=== PATIENT | female | born 1970 | race Caucasian/White ===

== ENCOUNTER → 2016-10-13 | Outpatient (CLI) | payer OTHER ==
[~2016-10-13] MED LIST: AMT24 PO; BUPRTAB51 PO; BUSP15TA70 PO; CALC600T14 PO; CLIN150C PO; CLON0.5T3 PO; DTRSR4 PO; ESOM40GR PO; FLUO40CA8 PO; GABA600T PO; METH500T PO; QUET1TAB34 PO; VITAMIN C PO
--- NOTE | 2016-10-13 14:31 | MAMMOGRAPHY REPORT ---
UNILATERAL LEFT DIGITAL DIAGNOSTIC MAMMOGRAM WITH CAD: 10/13/2016 CLINICAL HISTORY: 45-year-old woman presents for follow-up of probably benign calcifications in the central left breast. Patient has a history of saline implants. TECHNIQUE: Left CC and MLO views of the breast with and without implant displacement views, and spot magnification left CC and ML views were obtained. Current study was also evaluated with a Computer Aided Detection (CAD) system. COMPARISON: Comparison is made to exams dated: 04/11/2016 mammogram, 04/04/2016 mammogram, 02/04/2015 ma mmogram, and 01/27/2014 mammogram - [facility]. BREAST COMPOSITION: There are scattered areas of fibroglandular density in the left breast. FINDINGS: There is a calcification in the central left breast that has coarsened compared to the yen or spot magnification views, confirming benignity. This now has the appearance of a benign rim calc ification or eggshell calcification. No new suspicious mass, architectural distortion or cluster of microcalcifications is seen throughout the left breast. A subpectoral saline implant is intact. IMPRESSION: ACR BI-RADS CATEGORY 2: BENIGN The calcification in the central left breast has coarsened, confirming benignity. There is no mammo graphic evidence of malignancy. Return to annual mammogram screening schedule is recommended, which is due in March 2017. The patient has been verbally notified of the results. Approximately 10% of breast cancers are not detected with mammography. A negative mammographic repor t should not delay biopsy if a clinically suggestive mass is present. Mima Perez M.D. ay/:10/13/2016 10:22:05 Optical Effects Layout Person: Audra HANNON(Frederic)(Esdras), [facility] letter sent: Normal 1/2 BI-RADS Code: ACR BI-RADS Category 2: Benign
== END | disposition home or self-care (01) ==
LOC: C.MAMM 09:58
PROVIDERS: ATTEND Family Medicine
DX: R92.1 Mammographic calcification found on diagnostic imaging of breast (principal); Z98.82 Breast implant status

== ENCOUNTER → 2017-04-11 | Outpatient (CLI) | payer OTHER ==
--- NOTE | 2017-04-11 14:19 | MAMMOGRAPHY REPORT ---
BILATERAL DIGITAL SCREENING MAMMOGRAM WITH CAD: 04/11/2017 CLINICAL HISTORY: Routine screening. Patient has no complaints. TECHNIQUE: Current study was also evaluated with a Computer Aided Detection (CAD) system. Bilateral CC and MLO views including implant displaced views were obtained. COMPARISON: Comparison is made to exams dated: 10/13/2016 mammogram, 04/04/2016 mammogram, 02/04/2015 massiel mogram, 01/27/2014 mammogram, 01/21/2013 mammogram, and 12/29/2011 mammogram - [facility] BREAST COMPOSITION: There are scattered areas of fibroglandular density in both breasts. FINDINGS: No suspicious masses, calcifications, or areas of architectural distortion are noted in ei ther breast. There has been no significant interval change compared to prior exams. Bilateral subpec ross saline implants are stable in appearance. IMPRESSION: ACR BI-RADS CATEGORY 2: BENIGN There is no mammographic evidence of malignancy. A 1 year screening mammogram is recommended. The pa tient will receive written notification of the results. Approximately 10% of breast cancers are not detected with mammography. A negative mammographic report should not delay biopsy if a clinically suggestive mass is present. Dorina Dial M.D. /:04/11/2017 11:59:34 Electronics Test Engineer: Audra CHRISTIE)(M), [facility] letter sent: Normal 1/2 BI-RADS Code: ACR BI-RADS Category 2: Benign
== END | disposition home or self-care (01) ==
LOC: C.MAMM 10:23
PROVIDERS: ATTEND Obstetrics & Gynecology
DX: Z12.31 Encounter for screening mammogram for malignant neoplasm of breast (principal); Z98.82 Breast implant status

== ENCOUNTER → 2017-08-08 | Outpatient (CLI) | payer OTHER | END | disposition home or self-care (01) | LOC: C.PAPS 14:18 | PROVIDERS: ATTEND Obstetrics & Gynecology | DX: Z12.4 Encounter for screening for malignant neoplasm of cervix (principal) ==

== ENCOUNTER → 2017-10-21 | Outpatient (CLI) | payer OTHER ==
[2017-10-21 13:07] LABS: BASO % 0.5 %; BASO ABS # 0.02 K/uL (0-0.2); EOS % 0.8 %; EOS ABS # 0.03 K/uL (0-0.5); HEMATOCRIT 36.7 % (37-47); HEMOGLOBIN 12.2 g/dL (12.0-16.0); IG# 0.01 K/uL (0.00-0.02); LYMPH % 31.6 %; MEAN CORPUSCULAR HEMOGLOBIN 30.6 pg (25-34); MEAN CORPUSCULAR HGB CONC 33.2 g/dl (32-36); MEAN PLATELET VOLUME 9.6 fL (7.4-10.4); MONO % 7.9 %; NEUT % 58.9 %; NEUT ABS # 2.24 K/uL (1.4-6.5); PLATELET COUNT 216 K/uL (130-400); RED CELL DISTRIBUTION WIDTH CV 13.1 % (11.5-14.5)
[2017-10-21 13:37] LABS: ALBUMIN 4.4 gm/dl (3.4-5.0); BLOOD UREA NITROGEN 24 mg/dl (7-18); CARBON DIOXIDE 25 mmol/L (21-32); CHOLESTEROL 120 mg/dl (0-200); CREATININE 0.63 mg/dl (0.60-1.20); GLUCOSE 68 mg/dl (70-99); LDL CHOLESTEROL CALCULATED 44 mg/dl; URIC ACID 4.8 mg/dl (2.6-7.2)
[2017-10-21 13:38] LABS: SODIUM 141 mmol/L (136-145)
[2017-10-21 13:47] LABS: ALKALINE PHOSPHATASE 98 U/L (45-117); ALT/SGPT 29 U/L (12-78); AST/SGOT 20 U/L (15-37); TOTAL PROTEIN 7.5 gm/dl (6.4-8.2); TRANSFERRIN 253 mg/dl (200-360)
[2017-10-22 07:38] LABS: HEMOGLOBIN A1C 5.6 % (4.5-5.6)
== END | disposition home or self-care (01) ==
LOC: C.LAB 12:13
PROVIDERS: ATTEND Family Medicine
DX: R73.09 Other abnormal glucose (principal); E55.9 Vitamin D deficiency, unspecified; D51.9 Vitamin B12 deficiency anemia, unspecified; E78.9 Disorder of lipoprotein metabolism, unspecified; R53.83 Other fatigue

== ENCOUNTER → 2017-10-27 | Outpatient (CLI) | payer OTHER ==
[2017-10-27 12:33] LABS: BLOOD UREA NITROGEN 23 mg/dl (7-18); CARBON DIOXIDE 27 mmol/L (21-32); CREATININE 0.83 mg/dl (0.60-1.20); GLUCOSE 91 mg/dl (70-99); POTASSIUM 4.1 mmol/L (3.5-5.1); SODIUM 139 mmol/L (136-145)
== END | disposition home or self-care (01) ==
LOC: C.LAB 11:54
PROVIDERS: ATTEND Dermatology
DX: L70.9 Acne, unspecified (principal)

== ENCOUNTER 2023-02-23 09:33 | Inpatient (IN) ==
--- NOTE | 2023-02-06 15:33 | PAT Medication Instructions ---
Medication Instructions Date of Service February 06, 2023 Home Medications Medication Instructions Recorded bupropion HCl 300 mg 24 hr tablet, 300 mg PO DAILY #90 tabs 08/29/22 extended release levothyroxine 100 mcg tablet 100 mcg PO DAILY #90 tabs 08/29/22 (Synthroid) famotidine 40 mg tablet 40 mg PO DAILY #90 tabs 09/05/22 quetiapine 100 mg tablet 100 mg PO HS #90 tabs 09/05/22 tolterodine 4 mg capsule,extended 4 mg PO DAILY #90 caps 09/05/22 release 24 hr medroxyprogesterone 150 mg/mL 150 mg IM Q3MO #1 mL 09/14/22 intramuscular suspension clindamycin HCl 150 mg capsule 150 mg PO BID #180 caps 09/21/22 clonazepam 0.5 mg tablet 0.5 mg PO TID #270 tabs 09/21/22 sulindac 200 mg tablet 200 mg PO DAILY #30 tabs 11/17/22 atenolol 50 mg tablet 50 mg PO DAILY #90 tabs 01/05/23 dextroamphetamine-amphetamine 20 20 mg PO BID #60 tabs 01/26/23 mg tablet (Adderall) dextroamphetamine-amphetamine ER 30 mg PO DAILY #30 caps 01/26/23 30 mg 24hr capsule,extend release hydrocodone 10 mg-acetaminophen 1 tab PO Q4H PRN pain #180 tabs 01/26/23 325 mg tablet Medication List: linaclotide 290 mcg capsule (Linzess) 290 mcg PO QAM mometasone 50 mcg/actuation nasal spray 2 spray intranasal DAILY bupropion HCl 300 mg 24 hr tablet, extended release 300 mg PO DAILY levothyroxine 100 mcg tablet (Synthroid) 100 mcg PO DAILY famotidine 40 mg tablet 40 mg PO DAILY quetiapine 100 mg tablet 100 mg PO HS tolterodine 4 mg capsule,extended release 24 hr 4 mg PO DAILY duloxetine 60 mg capsule,delayed release 60 mg PO QAM medroxyprogesterone 150 mg/mL intramuscular suspension 150 mg IM Q3MO vilazodone 40 mg tablet 40 mg PO DAILY clindamycin HCl 150 mg capsule 150 mg PO BID clonazepam 0.5 mg tablet 0.5 mg PO TID budesonide-formoterol HFA 160 mcg-4.5 mcg/actuation aerosol inhaler (Symbicort) 2 puff inhalation Q12H fexofenadine 60 mg tablet 180 mg PO QAM isotretinoin 20 mg capsule 20 mg PO BID sulindac 200 mg tablet 200 mg PO DAILY atenolol 50 mg tablet 50 mg PO DAILY dextroamphetamine-amphetamine 20 mg tablet (Adderall) 20 mg PO BID dextroamphetamine-amphetamine ER 30 mg 24hr capsule,extend release 30 mg PO DAILY hydrocodone 10 mg-acetaminophen 325 mg tablet 1 tab PO Q4H PRN pain cyanocobalamin (vitamin B-12) 100 mcg tablet (Vitamin B-12) 100 mcg PO QAM ipratropium bromide 42 mcg (0.06 %) nasal spray 1 spray intranasal BID MEDICATION INSTRUCTIONS: Continue as directed ipratropium bromide 42 mcg (0.06 %) nasal spray 1 spray intranasal BID budesonide-formoterol HFA 160 mcg-4.5 mcg/actuation aerosol inhaler (Symbicort) 2 puff inhalation Q12H mometasone 50 mcg/actuation nasal spray 2 spray intranasal DAILY medroxyprogesterone 150 mg/mL intramuscular suspension 150 mg IM Q3MO ASK your surgeon for instructions sulindac 200 mg tablet 200 mg PO DAILY ASK your prescriber and surgeon isotretinoin 20 mg capsule 20 mg PO BID DO NOT take the morning of surgery fexofenadine 60 mg tablet 180 mg PO QAM linaclotide 290 mcg capsule (Linzess) 290 mcg PO QAM cyanocobalamin (vitamin B-12) 100 mcg tablet (Vitamin B-12) 100 mcg PO QAM dextroamphetamine-amphetamine 20 mg tablet (Adderall) 20 mg PO BID dextroamphetamine-amphetamine ER 30 mg 24hr capsule,extend release 30 mg PO DAILY tolterodine 4 mg capsule,extended release 24 hr 4 mg PO DAILY Take morning of surgery With a small sip of water, OTHERWISE NOTHING TO EAT OR DRINK AFTER MIDNIGHT: hydrocodone 10 mg-acetaminophen 325 mg tablet 1 tab PO Q4H PRN pain (if needed) clonazepam 0.5 mg tablet 0.5 mg PO TID bupropion HCl 300 mg 24 hr tablet, extended release 300 mg PO DAILY levothyroxine 100 mcg tablet (Synthroid) 100 mcg PO DAILY famotidine 40 mg tablet 40 mg PO DAILY duloxetine 60 mg capsule,delayed release 60 mg PO QAM atenolol 50 mg tablet 50 mg PO DAILY clindamycin HCl 150 mg capsule 150 mg PO BID vilazodone 40 mg tablet 40 mg PO DAILY Take evening before surgery hydrocodone 10 mg-acetaminophen 325 mg tablet 1 tab PO Q4H PRN pain (if needed) clonazepam 0.5 mg tablet 0.5 mg PO TID dextroamphetamine-amphetamine 20 mg tablet (Adderall) 20 mg PO BID clindamycin HCl 150 mg capsule 150 mg PO BID Other Notes CHECK WITH PRESCRIBER FOR INSTRUCTIONS: quetiapine 100 mg tablet 100 mg PO HS If you have any questions please call us at [phone] or [phone] or [phone] or [phone]
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
[~2023-02-23 09:33] MED LIST changes: -AMT24 PO; -BUPRTAB51 PO; -BUSP15TA70 PO; -CALC600T14 PO; -CLIN150C PO; -CLON0.5T3 PO; +CeleBREX 200 MG CAP PO SCH; -DTRSR4 PO; -ESOM40GR PO; -FLUO40CA8 PO; -GABA600T PO; +GABAPENTIN 900 MG DOSE PO SCH; +LR 15ML/HR IV SCH; +LR 60ML/HR IV SCH; -METH500T PO; -QUET1TAB34 PO; -VITAMIN C PO; +ceFAZolin 2000MG 2,000 MG/15 ML SYR IV SCH
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
[2023-02-23] MEDS ORDERED: ATROPINE SULFATE 0.1 MG/ML 10ML SYR IV PRN (12:31)
[2023-02-23] MEDS ORDERED: ePHEDrine sulfate 50 MG/ML AMP IV PRN (12:31)
[2023-02-23] MEDS ORDERED: PROMETHAZINE HCL 12.5 MG in SODIUM CHLORIDE 0.9% 50 ML IV PRN ×2 (12:31→17:41)
[2023-02-23] MEDS ORDERED: HYDROmorphone INJ 2 MG/ML SYR/VIAL IV PRN (12:31)
[2023-02-23] MEDS ORDERED: ONDANSETRON INJ 2 MG/ML 2 ML VIAL IV PRN ×2 (12:31→17:41)
--- NOTE | 2023-02-23 12:42 | History & Physical Bridge Note ---
Date of Service February 23, 2023 History & Physical Bridge Note I have examined the patient, reviewed the History & Physical and in the interval since the performance of the History & Physical I have noted the following changes of clinical significance: no changes noted
--- NOTE | 2023-02-23 12:43 | History & Physical Report ---
Date of Service February 23, 2023 Assessment & Plan (1) Lumbar disc disease with radiculopathy: Plan: L4-S1 decompression and fusion History of Present Illness Chief Complaint: Back and leg pain Primary Care Provider: Phil Seo MD This is a 52-year-old female who presents with chronic persistent back and leg pain after failing since course of nonoperative care is here for surgical invention. Allergies Allergy/AdvReac Type Severity Reaction Status Date / Time oxycodone AdvReac Mild Abdominal Verified 02/23/23 10:11 Pain, nausea Home Medications Medication Instructions Recorded Confirmed Type linaclotide 290 mcg capsule 290 mcg PO QAM 08/25/21 02/23/23 History (Linzess) mometasone 50 mcg/actuation nasal 2 spray intranasal DAILY 08/25/21 02/23/23 History spray (Nasonex 24hr Allergy) bupropion HCl 300 mg 24 hr tablet, 300 mg PO DAILY #90 tabs 08/29/22 02/23/23 Rx extended release levothyroxine 100 mcg tablet 100 mcg PO DAILY #90 tabs 08/29/22 02/23/23 Rx (Synthroid) tolterodine 4 mg capsule,extended 4 mg PO DAILY #90 caps 09/05/22 02/23/23 Rx release 24 hr duloxetine 60 mg capsule,delayed 60 mg PO QAM 09/14/22 02/23/23 History release clonazepam 0.5 mg tablet 0.5 mg PO TID #270 tabs 09/21/22 02/23/23 Rx fexofenadine 60 mg tablet 180 mg PO QAM 11/17/22 02/23/23 History atenolol 50 mg tablet 50 mg PO DAILY #90 tabs 01/05/23 02/23/23 Rx dextroamphetamine-amphetamine 20 20 mg PO BID #60 tabs 01/26/23 02/23/23 Rx mg tablet (Adderall) dextroamphetamine-amphetamine ER 30 mg PO DAILY #30 caps 01/26/23 02/23/23 Rx 30 mg 24hr capsule,extend release hydrocodone 10 mg-acetaminophen 1 tab PO Q4H PRN pain #180 tabs 01/26/23 02/23/23 Rx 325 mg tablet cyanocobalamin (vitamin B-12) 100 500 mcg PO QAM 02/06/23 02/23/23 History mcg tablet (Vitamin B-12) ipratropium bromide 42 mcg (0.06 1 spray intranasal BID 02/06/23 02/23/23 History %) nasal spray clindamycin HCl 150 mg capsule 150 mg PO DAILY 02/09/23 02/23/23 History famotidine 40 mg tablet 40 mg PO QPM 02/09/23 02/23/23 History medroxyprogesterone 150 mg/mL 150 mg IM Q3MO 02/23/23 02/23/23 History intramuscular suspension (Depo-Provera) quetiapine 100 mg tablet (Seroquel) 100 mg PO HS 02/23/23 02/23/23 History Past Med/Surg History Medical History Acne Anxiety Depression GERD without esophagitis History of blood transfusion History of seizure HTN (hypertension) Hx of traumatic brain injury Hypothyroidism Mood disorder Obsessive compulsive disorder Porencephaly, acquired PTSD (post-traumatic stress disorder) Seasonal allergies Sinus tachycardia Surgical History H/O breast augmentation Hx of tonsillectomy S/P colonoscopy S/P rhinoplasty S/P skin biopsy Family History Aunt Breast cancer Father Coronary heart disease Myocardial infarction OCD (obsessive compulsive disorder) Prostate cancer Mother Degenerative disc disease Grandmother (Paternal) Melanoma Denies family history of Ovarian cancer Colorectal cancer Uterine cancer Social History Smoking Status: Former smoker Tobacco Type: Cigarettes Cigarettes Per Day: ~ quit 2008; Second Hand Exposure: No; Do You Dip or Chew Tobacco: No; Tobacco Cessation Education Requested by Patient: No Hx Alcohol Use: No Hx Substance Use: No Preferred Language: Jamaican Communication Ability: Effective Visual Impairment: Limited Hearing Ability: Normal Garment Worker Required: No Beliefs That Will Affect Care: None marital status: / Current Living Situation: Family Current Living Situation Comment: lives w/ mother and step father current occupational status: unemployed Other Information That Helps Us Care for You: No Feels Safe at Home: Yes Safety Concerns: Feels Safe At This Time Childhood Exposure to Second-Hand Smoke: Yes caffeine: Yes Seatbelt Use: always Sunscreen Use: Yes Assistive Devices: Glasses Assistive Devices Comment: reading glasses Physical Exam Physical Exam: Patient is alert and oriented Heart regular rhythm Lungs clear Results & Data Results & Data Vital Signs (Past 12 Hours) Vital Signs Temp Pulse Resp BP Pulse Ox O2 Del Method 02/23/23 10:40 37.4 C 90 20 128/94 100 Room Air
[2023-02-23] MEDS ORDERED: MIDAZOLAM HCL 1 MG/ML 2ML VIAL ONE (13:14)
[2023-02-23] MEDS ORDERED: ROCURONIUM BROMIDE 10 MG/ML 5 ML VIAL IV ONE ×2 (13:14→14:57)
[2023-02-23] MEDS ORDERED: PROPOFOL IV EMULSION 10 MG/ML 20 ML VIAL IV ONE (13:14)
[2023-02-23] MEDS ORDERED: fentaNYL citrate PF 100 MCG/2 ML VIAL ONE ×3 (13:14→15:12)
[2023-02-23] MEDS ORDERED: LIDOCAINE 2% 2 ML VIAL/AMP(20MG/ML) INFIL ONE (13:14)
[2023-02-23] MEDS ORDERED: ceFAZolin 330 MG/ML 1 GM VIAL ONE (13:23)
[2023-02-23] MEDS ORDERED: BUPIVACAINE/EPINEPHRINE 0.25% 1:200,000 30 ML VIAL ONE (13:23)
[2023-02-23] MEDS ORDERED: FLOSEAL HEMOSTATIC MATRIX 10ML TOP ONE (14:02)
[2023-02-23] MEDS ORDERED: PHENYLEPHRINE HCL 10 MG/ML VIAL ONE (14:04)
[2023-02-23] MEDS ORDERED: ePHEDrine sulfate 50 MG/ML AMP ONE (14:04)
[2023-02-23] MEDS ORDERED: ONDANSETRON INJ 2 MG/ML 2 ML VIAL ONE (15:46)
[2023-02-23] MEDS ORDERED: DEXAMETHASONE SOD INJ 4 MG/ML VIAL ONE (15:46)
[2023-02-23] MEDS ORDERED: SUGAMMADEX SODIUM 200 MG/2 ML VIAL IV ONE (15:57)
--- NOTE | 2023-02-23 15:59 | Operative Report ---
Post Operative Report Pre & Post Diagnosis Operation Date: 02/23/23 12:05 Pre-Op Diagnosis: Lumbar spinal stenosis with neurogenic claudication Lumbar spondylolisthesis Post-Op Diagnosis: Same I identified the patient and participated in the time-out.: Yes Procedure Operation Date: 02/23/23 12:05 Actual Procedures 1. Lumbar decompression bilaterally facetectomies and foraminotomies L3-L4, L4- 5 and L5-S1. #2 posterior spinal fusion L4-L5 L5-S1. #3 placement posterior instrumentation L4-L5 L5-S1. #4 interbody fusion L4-L5 L5-S1. #5 placement Spira 12 x 26 mm cage at L4-5 and L5-S1. #6 placement locally harvested morselized autograft in the posterior gutters. #7 placement I factor commended the test in the interbody space and posterior gutters. Surgeon Sal Chu, Honey Blender Jeff Mccoy Estimated Blood Loss 375 Findings Consistent with Post-Op Diagnosis Specimens none Indications This is a 52-year-old female who presents above-mentioned diagnosis after failing course of nonoperative care she is here for surgical invention. Description of Procedure Patient was met with identified informed consent obtained. Patient was then taken to the operative suite underwent patient placed in a prone position on Vinny table top Keshawn frame. All bony prominences well-padded eyes inspected to ensure no external pressure placed upon the. This point the lumbar spine was prepped and draped in a sterile fashion. Sharp dissection with the assistance of Bovie cautery to form down to and exposing the lamina transverse processes of L4-L5 and sacral ala bilaterally. Wilson cephalad fashion complete laminectomy L5 L4 partial laminectomy L3 was performed including bilateral medial facetectomies and foraminotomies addressing severe spinal stenosis. Pedicle screws were then placed in L4-5 and S1 levels bilaterally with assistance of fluoroscopy and properly sized fidelia placed. Bilateral trans foraminal approach and right complete discectomy of all 5 S1 was performed endplates guided to subcortically bone and a 12 x 26 mm Spira cage with I factor tapped in position. Then proceeded L4-L5 and again by way of transforaminal approach and right complete discectomy performed endplates curetted to subcortically bone and again a 12 x 26 mm Spira cage with I factor tapped in position. The rods then locked in final position bilaterally. The transverse processes of L for L5 and sacral ala burred to subcortically bone. I factor bone of the test and locally harvested morselized graft placed in posterior gutters. 15 round MARCUS drain inserted. The incision was then closed with 1 Vicryl to fascia 2-0 Vicryl subcutaneously and 4 Monocryl for final skin closure. Steri-Strips sterile dressing placed. Patient waken taken to PACU in stable condition. Please note spinal cord monitoring was utilized at the procedure no changes noted. Lastly Jeff Mccoy was present at the entire procedure about the patient positioning complex portion of the surgery and final skin closure. I attest to the content of the Intraoperative Record and any orders documented therein. Any exceptions are noted below.
--- NOTE | 2023-02-23 16:27 | Fluoroscopy Report ---
FL lumbar spine 2-3V CLINICAL HISTORY: L4-S1 DECOMPRESSION AND FUSION WITH INTERBODY COMPARISON STUDY: None. FLUOROSCOPY TIME: 36 seconds. FLUOROSCOPY IMAGES: 2 Ka,r: 32.5 mGy FINDINGS: Posterior decompression and fusion from L4 through S1 with pedicle screws and rods. The vis ualized hardware appears intact. Disc spacers are in place. IMPRESSION: Fluoroscopic assistance as above. ACT 112: Negative or not required by law. Electronically signed by: Ramirez Watts M.D. 02/23/2023 4:25 PM
[2023-02-23] MEDS: fentaNYL citrate PF 100 MCG/2 ML VIAL IV PRN ×3 (16:35→16:45)
[2023-02-23] MEDS ORDERED: KETOROLAC 30 MG/ML VIAL ONE (16:57)
[2023-02-23] MEDS ORDERED: KETOROLAC 30 MG/ML VIAL IV ONE (16:58)
--- NOTE | 2023-02-23 16:59 | Anesthesiology Progress Note ---
Date of Service February 23, 2023 Anesthesia Post Procedure Vital Signs Vital Signs: Temp Pulse Resp BP Pulse Ox O2 Del Method O2 Flow Rate 02/23/23 16:20 36.7 C 88 18 111/70 96 Oxymask 5 02/23/23 10:40 37.4 C 90 20 128/94 100 Room Air Pain Intensity Lower Back: Pain Intensity: 10 Transfer of Care Handoff Completed per policy Notes Mental Status: alert / awake / arousable Patient Amnestic to Procedure: Yes Nausea / Vomiting: adequately controlled Pain: adequately controlled Airway Patency, RR, SpO2: stable & adequate BP & HR: stable & adequate Hydration State: stable & adequate Anesthetic Complications: no major complications apparent
[2023-02-23] MEDS ORDERED: ACETAMINOPHEN 1,000 MG/100 ML VIAL IV PRN (17:41)
[2023-02-23] MEDS ORDERED: bisacodyL 10 MG SUPP PR PRN (17:41)
[2023-02-23] MEDS ORDERED: NALOXONE HCL 0.4 MG/1 ML VIAL/CARP IV PRN (17:41)
[2023-02-23] MEDS ORDERED: METOCLOPRAMIDE HCL INJ 5 MG/ML 2 ML VIAL IV PRN (17:41)
[2023-02-23] MEDS ORDERED: MAGNESIUM HYDROXIDE SUSP 30 ML UDC PO PRN (17:41)
[2023-02-23] MEDS ORDERED: DO NOT ADMINISTER FLU VACCINE PRN (17:41)
[2023-02-23] MEDS ORDERED: ONDANSETRON 4 MG OD TAB PO PRN (17:41)
[2023-02-23] MEDS ORDERED: hydrOXYzine HCl 25 MG TAB PO PRN (17:41)
[2023-02-23] MEDS ORDERED: LORazepam 2 MG/1 ML VIAL IV PRN (17:41)
[2023-02-23] MEDS ORDERED: ACETAMINOPHEN 500 MG TAB PO PRN (17:41)
[2023-02-23] MEDS ORDERED: diphenhydrAMINE Capsule 25 MG CAP PO PRN (17:41)
[2023-02-23] MEDS ORDERED: ALUMINUM/MAGNESIUM SUSP 30 ML UDC PO PRN (17:41)
[2023-02-23] MEDS ORDERED: FAMOTIDINE 20 MG TAB PO PRN (17:41)
[2023-02-23] MEDS ORDERED: DO NOT ADMINISTER PNEUMOCOCCAL VACCINE PRN (17:41)
[2023-02-23] MEDS ORDERED: SOD PHOSPHATE/SOD BIPHOSPHATE ENEMA 132 ML BTL PR PRN (17:41)
[2023-02-23] MEDS ORDERED: LORazepam 0.5 MG TAB PO PRN (17:41)
[2023-02-23] MEDS: HYDROmorphone INJ 0.5 MG/0.5 ML SYR IV PRN (18:07)
[2023-02-23] MEDS: HYDROCODONE/ACETAMINOPHEN 7.5/325MG TAB PO PRN ×2 (19:07→23:18)
--- NOTE | 2023-02-23 20:19 | Communication Note ---
Date of Service: February 23, 2023 Chart reviewed, full consult will be done tomorrow. Please call [place] [facility] [place] personal assistant if there are any acute concerns or questions overnight. A tenolol placed on hold given current BP measurements. I am unclear why she is on chronic oral clindamycin ?acne although not mentioned in any dermatology notes. Reported as on hold in PCP note from in October but no reason for this and still on her med list in December despite last prescription picked up in August. This can be sorted out tomorrow and will place on hold until indication, dose and whether she is still taking this is confirmed. Otherwise outpatient medications appear appropriate.
[2023-02-23] MEDS: HYDROmorphone INJ 1 MG/ML SYRINGE IV PRN (21:18)
[2023-02-23] MEDS: clonazePAM 0.5 MG TAB PO SCH (21:23)
[2023-02-23] MEDS: FAMOTIDINE 40 MG TABLET PO SCH (21:23)
[2023-02-23] MEDS: DOCUSATE SODIUM/SENNA 50/8.6MG TAB PO SCH (21:23)
[2023-02-23] MEDS: LACTATED RINGER'S 1,000 ML IV SCH (21:24)
[2023-02-23] MEDS: IPRATROPIUM BROMIDE NASAL SPRAY 0.06% 15ML SCH (21:27)
[2023-02-23] MEDS: QUEtiapine FUMARATE 100 MG TABLET PO SCH (21:51)
[2023-02-23] MEDS: ceFAZolin 2000MG 2,000 MG/15 ML SYR IV SCH (22:44)
[2023-02-24] MEDS: HYDROmorphone INJ 1 MG/ML SYRINGE IV PRN ×6 (00:23→21:25)
[2023-02-24] MEDS: POLYETHYLENE (MIRALAX) 17 GM PACK PO SCH ×4 (05:45→22:58)
[2023-02-24] MEDS: LACTATED RINGER'S 1,000 ML IV SCH ×2 (05:45→19:05)
[2023-02-24] MEDS: LEVOTHYROXINE SODIUM 100 MCG TABLET PO SCH (05:45)
[2023-02-24] MEDS: ceFAZolin 2000MG 2,000 MG/15 ML SYR IV SCH (05:45)
[2023-02-24 07:58] LABS: Basophils # (auto) 0.01 K/uL (0-0.2); Basophils % (auto) 0.2 %; Hematocrit (blood only) 27.8 % (37.0-47.0); Hemoglobin 9.4 g/dl (12.0-16.0); Immature Granulocytes # (auto) 0.02 K/uL (0.01-0.20); Immature Granulocytes % (auto) 0.3 %; Lymphocytes # (auto) 0.63 K/uL (1.2-3.4); Lymphocytes % (auto) 10.8 %; Mean Corpuscular Hemoglobin 30.8 pg (25.0-34.0); Mean Corpuscular Hgb Conc 33.8 g/dL (32.0-36.0); Mean Corpuscular Volume 91.1 fL (80.0-100.0); Mean Platelet Volume 10.2 fL (9.4-12.4); Monocytes # (auto) 0.55 K/uL (0.11-0.59); Monocytes % (auto) 9.5 %; Neutrophils % (auto) 79.2 %; Platelet Count 195 K/uL (130-400); RDW Coefficient of Variation 13.2 % (11.5-14.5); RDW Standard Deviation 43.8 fL (36.4-46.3); Red Blood Count 3.05 M/uL (4.20-5.40); White Blood Count 5.81 K/ul (4.8-10.8)
[2023-02-24 08:03] LABS: BUN Creatinine Ratio 11.8 (10-20); Calcium 8.4 mg/dl (8.6-10.3); Creatinine Clr Calc Pharmacy 81.2 ml/min; Est GFR (African American) 91.3 ml/min; Est GFR (Non-African American) 78.8 ml/min; Potassium 3.6 mmol/L (3.5-5.1)
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
[2023-02-24] MEDS: dexAMETHasone 6 MG in SYRINGE 0 ML IV SCH (08:48)
[2023-02-24] MEDS: LINACLOTIDE 145 MCG CAPSULE PO SCH (08:48)
[2023-02-24] MEDS: IPRATROPIUM BROMIDE NASAL SPRAY 0.06% 15ML SCH ×2 (08:48→21:27)
[2023-02-24] MEDS: FEXOFENADINE HCL 180 MG TAB PO SCH (08:48)
[2023-02-24] MEDS: buPROPion XL 300 MG TABCR PO SCH (08:48)
[2023-02-24] MEDS: DULoxetine HCL 60 MG CAP PO SCH (08:48)
[2023-02-24] MEDS: OXYBUTYNIN CHLORIDE XL 5 MG TABCR PO SCH (08:49)
[2023-02-24] MEDS: FLUTICASONE PROPIONATE NA SPR 16 GM BTL NAE SCH (08:51)
--- NOTE | 2023-02-24 08:58 | Orthopedic Progress Note ---
Date of Service February 24, 2023 Assessment & Plan (1) Lumbar disc disease with radiculopathy: Plan: Nayana is postoperative day 1 status post TLIF L4-5 and L5-S1 levels. We will maintain MARCUS drain. Continue with aggressive bowel regimen. DVT prophylaxis is in the form of teds and SCDs. We will start physical therapy today. After that, she can ambulate the hallways with the assistance of the walker. I had a very candid discussion with her regarding narcotic use. Again upon discharge, narcotic medications will be managed by her family physician Dr. Seo. Very frankly, we have discussed that while she most likely will not be pain free, We will try and achieve optimal pain control while in the hospital. I anticipate discharge early next week. Admission and Anticipated Discharge Date Admission Date: February 23, 2023 Subjective Nayana is postoperative day 1 status post TLIF L4-5, L5-S1. MARCUS drain output last shift was 45 cc. H&H this morning are 9.4 and 27.8 respectively. She reports improvement of her leg pain. Complains of back pain. She is extremely focused on narcotic use and this has been an issue overnight with staff. At home preoperatively she takes oxycodone 10/325 4 times a day which is managed by Dr. Seo,her family physician. Review of Systems Review of Systems: All systems reviewed & are unremarkable except as noted in HPI & below Physical Exam Physical Exam: She is lying in bed in no acute distress Alert and oriented x3 Dressing is clean dry and intact with functioning MARCUS drain Calf soft nontender bilateral lower EXTR Strength intact bilateral lower extremities Results & Data Vital Signs (Past 12 Hours) Vital Signs Temp Pulse Resp BP Pulse Ox O2 Del Method 02/24/23 06:55 36.6 C 82 18 100/62 98 Room Air 02/24/23 03:31 100/63 02/24/23 03:01 36.6 C 87 18 84/50 L 97 Room Air 02/23/23 23:02 36.6 C 98 H 18 93/59 L 96 Room Air
[2023-02-24] MEDS ORDERED: CYANOCOBALAMIN (B-12) 500 MCG TABLET PO SCH (09:00)
[2023-02-24] MEDS: clonazePAM 0.5 MG TAB PO SCH ×3 (09:07→21:27)
[2023-02-24] MEDS: DEXTROAMPHETAMINE/AMPHETAMINE ER 10 MG CAP PO SCH (09:07)
[2023-02-24] MEDS ORDERED: bisacodyL 5 MG TABEC PO ONE ×2 (10:16→14:30)
[2023-02-24] MEDS: HYDROCODONE/ACETAMINOPHEN 7.5/325MG TAB PO PRN ×3 (10:27→23:02)
[2023-02-24] MEDS: AMPHETAMINE ASP/SULF/DEXTRAMPH 20 MG TAB PO SCH ×2 (12:10→17:01)
[2023-02-24] MEDS: QUEtiapine FUMARATE 100 MG TABLET PO SCH (21:27)
[2023-02-24] MEDS: bisacodyL 5 MG TABEC PO SCH (21:27)
[2023-02-24] MEDS: FAMOTIDINE 40 MG TABLET PO SCH (21:27)
[2023-02-24] MEDS: DOCUSATE SODIUM/SENNA 50/8.6MG TAB PO SCH (21:27)
[2023-02-25] MEDS: HYDROmorphone INJ 1 MG/ML SYRINGE IV PRN ×4 (03:19→23:13)
[2023-02-25] MEDS: POLYETHYLENE (MIRALAX) 17 GM PACK PO SCH ×4 (05:56→23:36)
[2023-02-25] MEDS: LEVOTHYROXINE SODIUM 100 MCG TABLET PO SCH (05:56)
[2023-02-25 07:18] LABS: Hematocrit (blood only) 25.3 % (37.0-47.0); Hemoglobin 8.5 g/dl (12.0-16.0); Mean Corpuscular Hemoglobin 30.5 pg (25.0-34.0); Mean Corpuscular Hgb Conc 33.6 g/dL (32.0-36.0); Mean Corpuscular Volume 90.7 fL (80.0-100.0); Mean Platelet Volume 10.5 fL (9.4-12.4); Platelet Count 181 K/uL (130-400); RDW Coefficient of Variation 13.2 % (11.5-14.5); RDW Standard Deviation 44.3 fL (36.4-46.3); Red Blood Count 2.79 M/uL (4.20-5.40); White Blood Count 6.58 K/ul (4.8-10.8)
[2023-02-25 07:22] LABS: Calcium 8.9 mg/dl (8.6-10.3); Magnesium 1.8 mg/dl (1.7-2.4); Potassium 3.4 mmol/L (3.5-5.1)
[2023-02-25 07:28] LABS: BUN Creatinine Ratio 14.3 (10-20); Creatinine Clr Calc Pharmacy 109.6 ml/min; Est GFR (African American) 119.5 ml/min; Est GFR (Non-African American) 103.1 ml/min
[2023-02-25] MEDS ORDERED: POTASSIUM CHLORIDE CRTAB 20 MEQ TABCR PO STA (08:06)
--- NOTE | 2023-02-25 08:09 | Hospitalist Progress Note ---
Date of Service February 25, 2023 Assessment & Plan (1) Lumbar disc disease with radiculopathy: Plan: POD #2 s/p 1. Lumbar decompression bilaterally facetectomies and foraminotomies L3-L4, L4-5 and L5-S1. #2 posterior spinal fusion L4-L5 L5-S1. #3 placement posterior instrumentation L4-L5 L5-S1. #4 interbody fusion L4-L5 L5-S1. #5 placement Spira 12 x 26 mm cage at L4-5 and L5-S1. #6 placement locally harvested morselized autograft in the posterior gutters. #7 placement I factor commended the test in the interbody space and posterior gutters. with Dr Chu on 02/23. EBL 375cc + MARCUS 45cc Hgb dropped since surgery 13.9 --> 9.4 --> 8.4 Acute blood loss anemia from surgery as well as dilutional from IVF. No significant MARCUS output or significant hematoma on exam and ambulating in the room without CP/SOB/dizziness reported. Not using walker/twisting and turning and did discuss limiting this as can cause complications/repeated surgeries if not listening Pain control/bowel regimen/PT/OT per primary service DVT proph: SCDs -- would continue these at home as well ACUTE on CHRONIC PAIN Heavy outpatient regimen, did not appear to be having reported adequate control while inpatient. Some uncomfortableness w/ primary in making adjustments discussed w/ her PCP prior to surgery and was going to manage post-op, however discussed w/ ortho PA yesterday given opiates use with short acting agents for >decade. Per patient, Dr Seo had been talking about possible extended release morphine but wanted to see her in follow up- Did place consult for Pain management and messaged Dr Nolen as well to see about long acting regimen/coordination w/ outpatient PCP in morning to determine best plan with case management (2) Hypothyroidism (acquired): Plan: TSH wnl on check, slightly lower end of normal at 0.461 Remains on Synthroid 100mcg daily (3) Anxiety: Plan: remains on her home medications including wellbutrin 300mg daily, klonopin 0.5mg TID, Adderall for her OCD, cymbalta 60mg daily, seroquel 100mg HS recommend f/u PCP to discuss possible alternatives to wellbutrin/cymbalta as seem to activating/exacerbating her anxiety/OCD. Could decrease her Adderall as well. (4) Major depressive disorder, recurrent severe without psychotic features: Plan: continues on wellbutrin, Klonopin, cymbalta, seroquel f/u PCP for adjustments but will continue current home regimen for now also notes had recent start Viiby, not ordered inpatient. Given ANOTHER SSRI, do not feel safe that this would be continued with her cymbalta. Will need adjustments to regimen w/ PCP Consideration for Abilify or other? Also likely benefit from having her adderral decreased and consider alternative agent for OCD (5) Sinus tachycardia: Plan: ?from her Adderall rx -- per patient new rx for atenolol however rates were controlled off Elevation this morning to 110/120s but walking the halls and not able to sit still No etoh use reported ~27 years apparently Anxiety meds continued as above BPs improved and resumed her atenolol TSH wnl on check Benefit from reducing her adderral as well as discussed K 3.4 -- PO supplementation ordered. Mag 1.8 - 1gm IV ordered to prevent any post-op afib. EKG obtained w/ sinus tachy/PACs, some depressions noted but patient NOT reporting any chest pain or shortness of breath at present. 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 Pain management consulted -- did message Dr Nolen of concerns this morning -- appreciate input/recommendations. Will need coordinated w/ CM to Dr Seo's office in AM to ensure smooth transition of care at time of discharge Will follow along, please call with any questions/concerns Admission and Anticipated Discharge Date Admission Date: February 23, 2023 Supervising Physician Co-Signing Physician Notes The patient was not seen by me. The chart was reviewed. Case discussed with KEENAN Bowles. Agree with assessment and plan Subjective Eval this morning, ambulating around the room without a walker, reporting pain. RNs coming in to give medication. Very anxious appearing. States she wanted to get off some of her antidepressants but didn't know which ones were working but they haven't been lately since her passed over a year ago. Discussed I wrote about f/u with Dr Seo to consider changing her Wellbutrin/Cymbalta as can be activating as well as decrease her Adderall. HRs elevated but NO CP/SOB/palpitations. Reporting back pain but again ambulating without a walker. Discussed limiting bending/twisting to limit demanding surgery. That makes her anxious as well about need for surgery -- discussed if listening to instructions can prevent this need. Discussed pain management consult as has been on short acting pain control >10 year and likely benefit from long acting. She notes Dr Seo has contemplated having her on extended release morphine but wanted to see her in the office prior to prescribing to make sure her "lungs sound good". Questions/concerns addressed at this time. States no Etoh use, prior abuse but 27years sober this past week. IV thiamine ordered this morning and will continue daily just in case given hx/TBI. Physical Exam Physical Exam: General: WD female ambulating in the room without her walker, anxious appearing trying to find medication list in bag to review Dr Seo's prior plan. Standing the entire examination. HEENT: head normocephalic, mmm, trachea midline Resp: CTA, no w/c/r, on room air 100% CV: regular rhythm, slightly tachy to low 100s ambulating in the room, no signficant m/r/g , no significant m/r/g, no pitting edema/calf tenderness GI: +BS, soft, nontender : no caro MSK/Neuro: dressing c/d/i, MARCUS present, strength testing b/l LE intact, equal plantar/dorsiflexion, pulses palpable, ambulating in the room Psych: alert/oriented to person/place/time, anxious appearing, pressured speech at times Results & Data Results & Data Vital Signs (Past 12 Hours) Vital Signs Temp Pulse Resp BP Pulse Ox O2 Del Method 02/25/23 07:55 37.1 C 112 H 18 138/87 100 Room Air 02/24/23 22:10 109 H 122/71 02/24/23 21:18 37.3 C 126 H 20 147/87 H 99 Room Air Laboratory Results 02/25/23 02/25/23 02/25/23 Range/Units 07:23 06:15 06:15 WBC (4.8-10.8) K/ul RBC (4.20-5.40) M/uL Hgb (12.0-16.0) g/dl Hct (37.0-47.0) % MCV (80.0-100.0) fL MCH (25.0-34.0) pg MCHC (32.0-36.0) g/dL RDW Std Deviation (36.4-46.3) fL RDW Coeff of Latonya (11.5-14.5) % Plt Count (130-400) K/uL MPV (9.4-12.4) fL Sodium (136-145) mmol/L Potassium (3.5-5.1) mmol/L Chloride (98-107) mmol/L Carbon Dioxide (21-32) mmol/L Anion Gap (3-11) BUN (6-23) mg/dl Creatinine (0.6-1.2) mg/dl Est Cr Clr Drug Dosing ml/min Est GFR ( Amer) ml/min Est GFR (Non-Af Amer) ml/min BUN/Creatinine Ratio (10-20) Glucose (70-99(Fasting)) mg/dl POC Glucose (70-99) mg/dl Calcium (8.6-10.3) mg/dl Magnesium (1.7-2.4) mg/dl Ammonia 28.0 (18-72) umol/L Vitamin B1 Pending Vitamin B12 349 (180-914) pg/ml TSH (0.300-4.500) uIu/ml 02/25/23 02/25/23 02/25/23 Range/Units 06:15 06:15 06:15 WBC 6.58 (4.8-10.8) K/ul RBC 2.79 L (4.20-5.40) M/uL Hgb 8.5 L (12.0-16.0) g/dl Hct 25.3 L (37.0-47.0) % MCV 90.7 (80.0-100.0) fL MCH 30.5 (25.0-34.0) pg MCHC 33.6 (32.0-36.0) g/dL RDW Std Deviation 44.3 (36.4-46.3) fL RDW Coeff of Ltaonya 13.2 (11.5-14.5) % Plt Count 181 (130-400) K/uL MPV 10.5 (9.4-12.4) fL Sodium 138 (136-145) mmol/L Potassium 3.4 L (3.5-5.1) mmol/L Chloride 106 (98-107) mmol/L Carbon Dioxide 23 (21-32) mmol/L Anion Gap 9 (3-11) BUN 9 (6-23) mg/dl Creatinine 0.63 (0.6-1.2) mg/dl Est Cr Clr Drug Dosing 109.6 ml/min Est GFR ( Amer) 119.5 ml/min Est GFR (Non-Af Amer) 103.1 ml/min BUN/Creatinine Ratio 14.3 (10-20) Glucose 96 (70-99(Fasting)) mg/dl POC Glucose (70-99) mg/dl Calcium 8.9 (8.6-10.3) mg/dl Magnesium 1.8 (1.7-2.4) mg/dl Ammonia (18-72) umol/L Vitamin B1 Vitamin B12 (180-914) pg/ml TSH 0.461 (0.300-4.500) uIu/ml 02/24/23 Range/Units 17:18 WBC (4.8-10.8) K/ul RBC (4.20-5.40) M/uL Hgb (12.0-16.0) g/dl Hct (37.0-47.0) % MCV (80.0-100.0) fL MCH (25.0-34.0) pg MCHC (32.0-36.0) g/dL RDW Std Deviation (36.4-46.3) fL RDW Coeff of Latonya (11.5-14.5) % Plt Count (130-400) K/uL MPV (9.4-12.4) fL Sodium (136-145) mmol/L Potassium (3.5-5.1) mmol/L Chloride (98-107) mmol/L Carbon Dioxide (21-32) mmol/L Anion Gap (3-11) BUN (6-23) mg/dl Creatinine (0.6-1.2) mg/dl Est Cr Clr Drug Dosing ml/min Est GFR ( Amer) ml/min Est GFR (Non-Af Amer) ml/min BUN/Creatinine Ratio (10-20) Glucose (70-99(Fasting)) mg/dl POC Glucose 145 H (70-99) mg/dl Calcium (8.6-10.3) mg/dl Magnesium (1.7-2.4) mg/dl Ammonia (18-72) umol/L Vitamin B1 Vitamin B12 (180-914) pg/ml TSH (0.300-4.500) uIu/ml PG Care Time/CCT Total # of Minutes Spent Total Time Spent with Patient: Total time spent is greater than 50% in coordination of care (as documented) at patient's floor/unit and/or counseling patient: Coding Level of Care Code 55594 SUB INP/OBS CARE 3/50MIN Diagnoses Lumbar disc disease with radiculopathy M51.16 Hypothyroidism (acquired) E03.9 Anxiety F41.9 Major depressive disorder, recurrent severe without psychotic features F33.2 Sinus tachycardia R00.0 Acne L70.9 Traumatic brain injury S06.9XAA Constipation K59.00 Mood disorder F39 GERD without esophagitis K21.9 PTSD (post-traumatic stress disorder) F43.10 Obsessive compulsive disorder F42.9 Depression F32.9 [id number] ultra-rapid metabolizer E88.89
[2023-02-25] MEDS ORDERED: MAGNESIUM SULFATE / D5W 1 GM/100 ML BAG IV ONE (08:30)
--- NOTE | 2023-02-25 08:52 | Orthopedic Progress Note ---
Date of Service February 25, 2023 Assessment & Plan (1) Lumbar disc disease with radiculopathy: Plan: Nayana is postoperative day 2 status post lumbar decompression and fusion L4- S1. Will continue to work on aggressive bowel regimen. Continue with ambulation. Again I have reinforced that she must use her walker with any type of ambulation especially in the hallway. We will monitor her H&H. She is currently asymptomatic. Continue IVF. A pain management consult was also placed yesterday for guidance on better management of her pain. This is the focus of her hospital stay. I have reviewed with her that we will have to decrease use of IV Dilaudid as this is not a medication that she can go home with in IV form. Admission and Anticipated Discharge Date Admission Date: February 23, 2023 Subjective Nayana is postoperative day 2 status post L4-S1 decompression and fusion. Has complaints of lower back pain. No radicular pain. She is passing flatus but no bowel movement. MARCUS drain output last shift was 40 cc. Yesterday in physical therapy ambling 500 feet. She is ambulating the hallways without her walker. Still very focused on her narcotic regimen. H&H this morning are 8.5 and 25.3. She is asymptomatic. Still on IV fluids Review of Systems Review of Systems: All systems reviewed & are unremarkable except as noted in HPI & below Physical Exam Physical Exam: When I first encountered her she is standing in the hallway talking to one of our staff members. No walker. Once we return to the room she remained standing throughout her entire encounter. She is putting her make-up on. She is in no acute distress. Lumbar dressing is clean dry intact with functioning MARCUS drain Results & Data Vital Signs (Past 12 Hours) Vital Signs Temp Pulse Resp BP Pulse Ox O2 Del Method 02/25/23 07:55 37.1 C 112 H 18 138/87 100 Room Air 02/24/23 22:10 109 H 122/71 02/24/23 21:18 37.3 C 126 H 20 147/87 H 99 Room Air
[2023-02-25] MEDS: FEXOFENADINE HCL 180 MG TAB PO SCH (09:25)
[2023-02-25] MEDS: LINACLOTIDE 145 MCG CAPSULE PO SCH (09:25)
[2023-02-25] MEDS: DULoxetine HCL 60 MG CAP PO SCH (09:25)
[2023-02-25] MEDS: ATENOLOL 50 MG TABLET PO SCH (09:25)
[2023-02-25] MEDS: buPROPion XL 300 MG TABCR PO SCH (09:25)
[2023-02-25] MEDS: CLINDAMYCIN HCL 150 MG CAP PO SCH (09:25)
[2023-02-25] MEDS: OXYBUTYNIN CHLORIDE XL 5 MG TABCR PO SCH (09:25)
[2023-02-25] MEDS: dexAMETHasone 6 MG in SYRINGE 0 ML IV SCH (09:26)
[2023-02-25] MEDS: IPRATROPIUM BROMIDE NASAL SPRAY 0.06% 15ML SCH ×2 (09:26→20:05)
[2023-02-25] MEDS: FLUTICASONE PROPIONATE NA SPR 16 GM BTL NAE SCH (09:34)
[2023-02-25] MEDS: bisacodyL 5 MG TABEC PO SCH ×2 (09:52→20:05)
[2023-02-25] MEDS: clonazePAM 0.5 MG TAB PO SCH ×3 (09:52→20:04)
[2023-02-25] MEDS: DEXTROAMPHETAMINE/AMPHETAMINE ER 10 MG CAP PO SCH (09:53)
[2023-02-25] MEDS: CYANOCOBALAMIN (B-12) 500 MCG TABLET PO SCH (09:53)
[2023-02-25] MEDS: THIAMINE HCL 200 MG in SODIUM CHLORIDE 0.9% 50 ML IV SCH (09:57)
[2023-02-25] MEDS: AMPHETAMINE ASP/SULF/DEXTRAMPH 20 MG TAB PO SCH ×2 (12:10→17:09)
--- NOTE | 2023-02-25 14:04 | Electrocardiogram Report ---
Test Reason : Blood Pressure : / mmHG Vent. Rate : 121 BPM Atrial Rate : 121 BPM P-R Int : 152 ms QRS Dur : 076 ms QT Int : 294 ms P-R-T Axes : 067 056 050 degrees QTc Int : 417 ms Sinus tachycardia with occasional Premature ventricular complexes Nonspecific ST abnormality Abnormal ECG When compared with ECG of 09-FEB-2023 14:24, Premature ventricular complexes are now Present ST now depressed in Lateral leads Confirmed by Gabriel Navarro ([id number]) on 02/25/2023 2:03:51 PM Referred By: Sal Chu Confirmed By:Gabriel Navarro
[2023-02-25] MEDS: HYDROCODONE/ACETAMINOPHEN 7.5/325MG TAB PO PRN (15:32)
[2023-02-25] MEDS: QUEtiapine FUMARATE 100 MG TABLET PO SCH (20:04)
[2023-02-25] MEDS: FAMOTIDINE 40 MG TABLET PO SCH (20:04)
[2023-02-25] MEDS: DOCUSATE SODIUM/SENNA 50/8.6MG TAB PO SCH (20:05)
[2023-02-26] MEDS: HYDROmorphone INJ 1 MG/ML SYRINGE IV PRN ×3 (02:16→08:21)
[2023-02-26] MEDS: POLYETHYLENE (MIRALAX) 17 GM PACK PO SCH (05:46)
[2023-02-26] MEDS: LEVOTHYROXINE SODIUM 100 MCG TABLET PO SCH (05:46)
[2023-02-26] MEDS: DEXTROAMPHETAMINE/AMPHETAMINE ER 10 MG CAP PO SCH (07:39)
[2023-02-26] MEDS: buPROPion XL 300 MG TABCR PO SCH (09:37)
[2023-02-26] MEDS: OXYBUTYNIN CHLORIDE XL 5 MG TABCR PO SCH (09:38)
[2023-02-26] MEDS: FEXOFENADINE HCL 180 MG TAB PO SCH (09:38)
[2023-02-26] MEDS: LINACLOTIDE 145 MCG CAPSULE PO SCH (09:38)
[2023-02-26] MEDS: ATENOLOL 50 MG TABLET PO SCH (09:38)
[2023-02-26] MEDS: bisacodyL 5 MG TABEC PO SCH ×2 (09:39→21:30)
[2023-02-26] MEDS: CLINDAMYCIN HCL 150 MG CAP PO SCH (09:39)
[2023-02-26] MEDS: dexAMETHasone 6 MG in SYRINGE 0 ML IV SCH (09:39)
[2023-02-26] MEDS: CYANOCOBALAMIN (B-12) 500 MCG TABLET PO SCH (09:41)
[2023-02-26] MEDS: DULoxetine HCL 60 MG CAP PO SCH (09:42)
[2023-02-26] MEDS: IPRATROPIUM BROMIDE NASAL SPRAY 0.06% 15ML SCH ×2 (09:43→21:30)
[2023-02-26] MEDS: FLUTICASONE PROPIONATE NA SPR 16 GM BTL NAE SCH (09:43)
[2023-02-26] MEDS: THIAMINE HCL 200 MG in SODIUM CHLORIDE 0.9% 50 ML IV SCH (09:54)
[2023-02-26] MEDS: clonazePAM 0.5 MG TAB PO SCH ×3 (09:54→21:29)
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
[2023-02-26] MEDS ORDERED: diphenhydrAMINE Capsule 25 MG CAP PO ONE (11:46)
--- NOTE | 2023-02-26 12:06 | Hospitalist Progress Note ---
Date of Service February 26, 2023 Assessment & Plan (1) Lumbar disc disease with radiculopathy: Plan: POD #2 s/p 1. Lumbar decompression bilaterally facetectomies and foraminotomies L3-L4, L4-5 and L5-S1. #2 posterior spinal fusion L4-L5 L5-S1. #3 placement posterior instrumentation L4-L5 L5-S1. #4 interbody fusion L4-L5 L5-S1. #5 placement Spira 12 x 26 mm cage at L4-5 and L5-S1. #6 placement locally harvested morselized autograft in the posterior gutters. #7 placement I factor commended the test in the interbody space and posterior gutters. with Dr Chu on 02/23. EBL 375cc + MARCUS 45cc Hgb dropped since surgery, stable at 8.5 presently 13.9 --> 9.4 --> 8.4 Pain control/bowel regimen/PT/OT per primary orthopedic service DVT prophylaxis: SCDs ACUTE on CHRONIC PAIN Heavy outpatient regimen, did not appear to be having reported adequate control while inpatient. Some discomfort w/ primary in making adjustments discussed w/ her PCP prior to surgery and was going to manage post-op, however discussed w/ orthopedic PA earlier given opiate use with short acting agents for >decade. Per patient, Dr Seo had been talking about possible extended release morphine but wanted to see her in follow up- scheduled 02/27 Pain management consulted, appreciate recommendations- pain regimen per orthopedic primary (2) Hypothyroidism (acquired): Plan: TSH wnl on check, slightly lower end of normal at 0.461 Remains on Synthroid 100mcg daily (3) Anxiety: Plan: -Remains on her home medications including wellbutrin 300mg daily, klonopin 0.5mg TID, Adderall for her OCD, cymbalta 60mg daily, seroquel 100mg HS -Recommend f/u PCP to discuss possible alternatives to wellbutrin/cymbalta as seem to activating/exacerbating her anxiety/OCD. Could decrease her Adderall as well. (4) Major depressive disorder, recurrent severe without psychotic features: Plan: Continues on wellbutrin, Klonopin, cymbalta, seroquel f/u PCP for adjustments but will continue current home regimen for now also notes had recent start Viibryd, not ordered inpatient. 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 No increased abd pain reported at present (9) Mood disorder: Plan: Anxious about need for her pain medications at present home meds continued as above (10) GERD without esophagitis: Plan: continue famotidine daily (11) PTSD (post-traumatic stress disorder): Plan: noted, meds as above (12) Obsessive compulsive disorder: Plan: on Adderall (13) Depression: Plan: as above worse since her passed may require further adjustments to home meds as above outlined- PCP f/u (14) [id number] ultra-rapid metabolizer: Plan Hospitalist signing off at this time. Please contact with any further question or assistance. Admission and Anticipated Discharge Date Admission Date: February 23, 2023 Supervising Physician Co-Signing Physician Notes I personally examined the patient and verified all edward points of history and exam, discussed case, and agree with decision making with Dr Cano sleeping Comfortably at the time that I see her. Case discussed with resident physician and nursing. Pain management input appreciated. No new issues have arisen. Will sign off, but available if further assistance is needed. Thank you. Subjective No acute events overnight. Pt receiving Dilaudid 1 mg q3h, rarely taking [place]. Pt considerably anxious about her pain regimen, particularly upon discharge. Her postoperative pain is 8/10, though Dilaudid does provide relief. No neurologic symptoms. She reports PCP is considering morphine ER for her outpatient pain regimen, and has appointment with him tomorrow afternoon. Review of Systems Review of Systems: per HPI Physical Exam Physical Exam: General: WD female ambulating in the room without her walker, anxious. Standing the entire examination. HEENT: head normocephalic, mmm, trachea midline Resp: CTA, no w/c/r, on room air 100% CV: regular rhythm, slightly tachy to low 100s ambulating in the room, no significant m/r/g GI: soft, NT, ND MSK/Neuro: dressing c/d/i, MARCUS present, strength testing b/l LE intact, equal plantar/dorsiflexion, pulses palpable, ambulating in the room Psych: alert/oriented to person/place/time, anxious appearing, pressured speech at times Results & Data Results & Data Vital Signs (Past 12 Hours) Vital Signs Temp Pulse Resp BP Pulse Ox O2 Del Method 02/26/23 07:30 36.6 C 113 H 18 147/86 H 100 Room Air Resident Activity Tracking Resident Involvement: Resident Care Provided Care Provided: Adult Hospital Medicine
[2023-02-26] MEDS: AMPHETAMINE ASP/SULF/DEXTRAMPH 20 MG TAB PO SCH ×2 (12:43→16:48)
[2023-02-26] MEDS ORDERED: oxyCODONE HCL IR 5 MG TAB (IMMEDIATE RELEASE) PO PRN ×2 (12:54→12:56)
--- NOTE | 2023-02-26 12:57 | Orthopedic Progress Note ---
Date of Service February 26, 2023 Assessment & Plan (1) Neurogenic claudication due to lumbar spinal stenosis: Plan: At this time we will continue physical therapy plan for discontinuing her drain in the morning and discharge home tomorrow. Appreciate input from pain management. We will initiate oxy IR every 4-6 hours as needed Admission and Anticipated Discharge Date Admission Date: February 23, 2023 Subjective Patient complaining of back pain. Leg pain is controlled. She is ambulating well. Physical Exam Physical Exam: On exam the patient is standing ambulate about the room. She is good strength testing. Dressings in place drain is functioning. Results & Data Vital Signs (Past 12 Hours) Vital Signs Temp Pulse Resp BP Pulse Ox O2 Del Method 02/26/23 07:30 36.6 C 113 H 18 147/86 H 100 Room Air
--- NOTE | 2023-02-26 18:34 | Billing Data ---
Date of Service February 26, 2023 Coding Level of Care Code 48685 SUB INP/OBS CARE
[2023-02-26] MEDS: FAMOTIDINE 40 MG TABLET PO SCH (21:29)
[2023-02-26] MEDS: QUEtiapine FUMARATE 100 MG TABLET PO SCH (21:29)
[2023-02-26] MEDS: DOCUSATE SODIUM/SENNA 50/8.6MG TAB PO SCH (21:30)
[2023-02-26] MEDS: HYDROmorphone INJ 0.5 MG/0.5 ML SYR IV PRN (22:00)
[2023-02-27] MEDS: HYDROmorphone INJ 1 MG/ML SYRINGE IV PRN ×6 (01:35→22:34)
[2023-02-27] MEDS: LEVOTHYROXINE SODIUM 100 MCG TABLET PO SCH (06:25)
[2023-02-27] MEDS: CYANOCOBALAMIN (B-12) 500 MCG TABLET PO SCH (09:12)
[2023-02-27] MEDS: buPROPion XL 300 MG TABCR PO SCH (09:12)
[2023-02-27] MEDS: CLINDAMYCIN HCL 150 MG CAP PO SCH (09:12)
[2023-02-27] MEDS: FEXOFENADINE HCL 180 MG TAB PO SCH (09:13)
[2023-02-27] MEDS: OXYBUTYNIN CHLORIDE XL 5 MG TABCR PO SCH (09:13)
[2023-02-27] MEDS: LINACLOTIDE 145 MCG CAPSULE PO SCH ×2 (09:13→10:46)
[2023-02-27] MEDS: DULoxetine HCL 60 MG CAP PO SCH (09:13)
[2023-02-27] MEDS: IPRATROPIUM BROMIDE NASAL SPRAY 0.06% 15ML SCH ×2 (09:25→21:03)
[2023-02-27] MEDS: clonazePAM 0.5 MG TAB PO SCH ×3 (09:53→21:07)
[2023-02-27] MEDS: bisacodyL 5 MG TABEC PO SCH ×2 (09:53→21:03)
[2023-02-27] MEDS: THIAMINE HCL 200 MG in SODIUM CHLORIDE 0.9% 50 ML IV SCH (09:53)
[2023-02-27] MEDS: FLUTICASONE PROPIONATE NA SPR 16 GM BTL NAE SCH (10:14)
[2023-02-27] MEDS: ATENOLOL 50 MG TABLET PO SCH (10:14)
[2023-02-27] MEDS: DEXTROAMPHETAMINE/AMPHETAMINE ER 10 MG CAP PO SCH (10:46)
[2023-02-27] MEDS: MoRPHine SULFATE CR 15 MG TABCR PO SCH ×2 (11:04→23:42)
--- NOTE | 2023-02-27 12:32 | Orthopedic Progress Note ---
Date of Service February 27, 2023 Assessment & Plan (1) Neurogenic claudication due to lumbar spinal stenosis: Plan: At this time we will attempt MS Contin 30 mg every 12 to see if this can supplement her pain control. If this is tolerable we will plan for discharge tomorrow. Admission and Anticipated Discharge Date Admission Date: February 23, 2023 Subjective Patient continues to state her pain is not controlled. Physical Exam Physical Exam: On exam she is sitting up at the bedside. She is moving without evidence of antalgia. She is good strength testing. Results & Data Vital Signs (Past 12 Hours) Vital Signs Temp Pulse Pulse Resp BP BP Pulse Ox 02/27/23 09:23 107 H 99/64 L 02/27/23 07:58 37.2 C 95 H 16 121/75 97 O2 Del Method 02/27/23 09:23 02/27/23 07:58 Room Air
[2023-02-27] MEDS: AMPHETAMINE ASP/SULF/DEXTRAMPH 20 MG TAB PO SCH ×2 (12:58→16:34)
[2023-02-27] MEDS: FAMOTIDINE 40 MG TABLET PO SCH (21:03)
[2023-02-27] MEDS: DOCUSATE SODIUM/SENNA 50/8.6MG TAB PO SCH (21:03)
[2023-02-27] MEDS: QUEtiapine FUMARATE 100 MG TABLET PO SCH (21:03)
[2023-02-28] MEDS: HYDROmorphone INJ 1 MG/ML SYRINGE IV PRN ×3 (01:33→12:19)
[2023-02-28] MEDS: LEVOTHYROXINE SODIUM 100 MCG TABLET PO SCH (06:37)
[2023-02-28] MEDS: LINACLOTIDE 145 MCG CAPSULE PO SCH (07:58)
[2023-02-28] MEDS: ATENOLOL 50 MG TABLET PO SCH (07:58)
[2023-02-28] MEDS: OXYBUTYNIN CHLORIDE XL 5 MG TABCR PO SCH (07:58)
[2023-02-28] MEDS: CYANOCOBALAMIN (B-12) 500 MCG TABLET PO SCH (07:58)
[2023-02-28] MEDS: buPROPion XL 300 MG TABCR PO SCH (07:59)
[2023-02-28] MEDS: DULoxetine HCL 60 MG CAP PO SCH (07:59)
[2023-02-28] MEDS: FEXOFENADINE HCL 180 MG TAB PO SCH (08:00)
[2023-02-28] MEDS: CLINDAMYCIN HCL 150 MG CAP PO SCH (08:00)
[2023-02-28] MEDS: IPRATROPIUM BROMIDE NASAL SPRAY 0.06% 15ML SCH (08:02)
[2023-02-28] MEDS: FLUTICASONE PROPIONATE NA SPR 16 GM BTL NAE SCH (08:02)
[2023-02-28] MEDS: DEXTROAMPHETAMINE/AMPHETAMINE ER 10 MG CAP PO SCH (08:15)
[2023-02-28] MEDS: clonazePAM 0.5 MG TAB PO SCH (08:15)
[2023-02-28] MEDS: bisacodyL 5 MG TABEC PO SCH (08:15)
[2023-02-28] MEDS: THIAMINE HCL 200 MG in SODIUM CHLORIDE 0.9% 50 ML IV SCH (08:16)
--- NOTE | 2023-02-28 10:01 | Orthopedic Progress Note ---
Date of Service February 28, 2023 Assessment & Plan (1) Neurogenic claudication due to lumbar spinal stenosis: Plan: This time we will try to get her discharged today so she can follow-up with her doctors appointment this afternoon. She is stable orthopedically and will discharge home. Requesting pain management to guide us regarding home narcotic utilization. Admission and Anticipated Discharge Date Admission Date: February 23, 2023 Subjective Patient is having some right upper lateral thigh pain but otherwise moving around well. She continues to obsess over her narcotic needs. Physical Exam Physical Exam: On exam she is up and standing and moving about the room without any evidence of gross antalgia. She does have exquisite tenderness palpation of the right greater trochanter. Results & Data Vital Signs (Past 12 Hours) Vital Signs Temp Pulse Resp BP Pulse Ox O2 Del Method 02/28/23 07:15 36.6 C 112 H 22 103/65 95 Room Air
[2023-02-28] MEDS: MoRPHine SULFATE CR 15 MG TABCR PO SCH (11:17)
[2023-02-28] MEDS: AMPHETAMINE ASP/SULF/DEXTRAMPH 20 MG TAB PO SCH (12:17)
--- NOTE | 2023-03-02 09:06 | Discharge Summary ---
Date of Service March 02, 2023 Admission HPI Per Admitting Provider This is a 52-year-old female who presents with chronic persistent back and leg pain after failing since course of nonoperative care is here for surgical invention. Discharge Data Consultations 02/23/23 17:41 Consult Hospitalist Routine 02/24/23 15:41 Consult Pain Management Routine 02/28/23 07:51 Consult Pain Management Routine Procedures Performed Operation Date: 02/23/23 12:05 Actual Procedures p L4-S1 Decompression and Fusion, Spinal Cord Monitoring(Not Applicable) - Sal Chu DO [facility] Course (1) Lumbar disc disease with radiculopathy: Patient is a pleasant 52-year-old female with history physical examination and radiographic images consistent the above-mentioned diagnosis. For this reason she brought to the operating room on 02/23/2023 undergone lumbar decompression fusion from L4-S1. Patient left the operating with a MARCUS drain and Mendoza in place and transferred to PACU in stable condition. She was then transferred to the orthopedic floor. She was placed on GI DVT prophylaxis. She is seen by physical therapy postop day #1. She had issues the pain control measures due to her long-term use of narcotics was deemed safe for home discharge on 02/28/2023 her discharge instructions were to avoid any full bending at the waist she was not to lift anything heavier than 5 pounds. She is to change her dressing once daily till there is no drainage from there is no drainage she may shower. She is to refrain from driving until she is seen in the office in approximately 2 weeks. She is to call and be seen sooner if she developed any increased drainag e from the incision and any uncontrolled pain or fevers or chills.
== END 2023-02-28 13:43 | disposition home or self-care (01) | DRG 454 ==
LOC: ASU 09:33 → 3W 16:03
DX: Z79.890 Hormone replacement therapy; F42.9 Obsessive-compulsive disorder, unspecified; T40.605A Adverse effect of unspecified narcotics, initial encounter; Z79.3 Long term (current) use of hormonal contraceptives; K21.9 Gastro-esophageal reflux disease without esophagitis; Z87.891 Personal history of nicotine dependence; M43.16 Spondylolisthesis, lumbar region; Z88.5 Allergy status to narcotic agent; D62 Acute posthemorrhagic anemia; L70.9 Acne, unspecified; I10 Essential (primary) hypertension; Z79.899 Other long term (current) drug therapy; F41.9 Anxiety disorder, unspecified; G89.29 Other chronic pain; M48.062 Spinal stenosis, lumbar region with neurogenic claudication; Z87.820 Personal history of traumatic brain injury; M54.16 Radiculopathy, lumbar region; E03.9 Hypothyroidism, unspecified; F33.9 Major depressive disorder, recurrent, unspecified; K59.03 Drug induced constipation; F43.10 Post-traumatic stress disorder, unspecified